=== PATIENT | female | born 1990 | race Two or more races ===

== ENCOUNTER 2016-08-04 12:25 | Emergency (ER) | payer OTHER ==
[2016-08-04 12:30] VITALS: BP 121/79; PULSE 63; TEMP 98.3; BMI 32.5
[2016-08-04] MEDS ORDERED: KETOROLAC TROMETHAMINE 60 MG/2 ML VIAL IM ONE (13:11)
[2016-08-04] MEDS ORDERED: KETOROLAC TROMETHAMINE 60 MG/2 ML VIAL ONE (14:10)
--- NOTE | 2016-08-04 14:22 | PDOC ---
History of Present Illness - General Chief Complaint: Pain, Acute Stated Complaint: LT KNEE PAIN Time Seen by Provider: 08/04/16 12:51 History Source: Patient Exam Limitations: No Limitations - History of Present Illness Initial Comments: 08/04/16 14:16 CC left knee pain and swelling post fall on steps x 2 days ago; difficulty ambulating now Occurred: reports: other ( sunday evening) Severity: reports: moderate Pain Location: reports: lower extremity Method of Injury: Yes: direct blow, fall Past History - Past Medical History Allergies/Adverse Reactions: Allergies Allergy/AdvReac Type Severity Reaction Status Date / Time No Known Allergies Allergy Verified 08/04/16 13:01 Home Medications: Ambulatory Orders NK [No Known Home Medication] 08/04/16 Anemia: No Asthma: No Cancer: No Cardiac Disorders: No CVA: No COPD: No CHF: No Dementia: No Diabetes: No GI Disorders: Yes (ABDOMINAL PAIN) Disorders: No HTN: No Hypercholesterolemia: No Liver Disease: No Seizures: No Thyroid Disease: No - Surgical History Abdominal Surgery: No Appendectomy: No Cardiac Surgery: No Cholecystectomy: No Lung Surgery: No Neurologic Surgery: No Orthopedic Surgery: Yes (LEFT FOOT BUNIONECTOMY) - Immunization History Immunization Up to Date: Yes - Psycho/Social/Smoking Cessation Hx Anxiety: No Suicidal Ideation: No Smoking Status: No Smoking History: Never smoked Have you smoked in the past 12 months: Yes Number of Cigarettes Smoked Daily: 0 If you are a former smoker, when did you quit?: 1 MONTH Information on smoking cessation initiated: No Hx Alcohol Use: No Drug/Substance Use Hx: No Substance Use Type: None, Marijuana Hx Substance Use Treatment: No Review of Systems - Review of Systems Constitutional: No: Symptoms Reported HEENTM: No: Symptoms Reported Respiratory: No: Symptoms reported ABD/GI: No: Symptoms Reported Musculoskeletal: Yes: Joint Pain, Joint Swelling Integumentary: No: Symptoms Reported *Physical Exam - Vital Signs Last Vital Signs Temp Pulse Resp BP Pulse Ox 98.3 F 63 18 121/79 100 08/04/16 12:28 08/04/16 12:28 08/04/16 12:28 08/04/16 12:28 08/04/16 12:28 - Physical Exam General Appearance: Yes: Appropriately Dressed. No: Apparent Distress HEENT: positive: TMs Normal, Pharynx Normal Neck: positive: Supple. negative: Tender, Rigid Respiratory/Chest: positive: Lungs Clear, Normal Breath Sounds. negative: Accessory Muscle Use Musculoskeletal: positive: Other (tender to medial joint space; no laxity; pain increases with flexion > 45; with anterior knee effusion) ED Treatment Course - ADDITIONAL ORDERS Additional order review: Laboratory Results 08/04/16 13:15 Urine HCG, Qual Negative - RADIOLOGY Radiology Studies Ordered: Category Date Time Status KNEE 2 POS-LEFT [RAD] Stat Radiology 08/04/16 13:11 Completed - Medications Given in the ED: ED Medications Discontinued Medications Generic Name Dose Route Start Last Admin Trade Name Freq PRN Reason Stop Dose Admin Ketorolac Tromethamine 60 mg 08/04/16 13:11 08/04/16 14:14 Toradol Injection - IM 08/04/16 13:12 60 mg ONCE ONE Administration Medical Decision Making - Medical Decision Making 08/04/16 14:20 will suggest follow up for reeval. post 4 days rest with ortho; knee immobilizer applied *DC/Admit/Observation/Transfer Diagnosis at time of Disposition: Strain of left knee Qualifiers: Encounter type: initial encounter Qualified Code(s): S86.912A - Strain of unspecified muscle(s) and tendon(s) at lower leg level, left leg, initial encounter - Discharge Dispostion Disposition: HOME Condition at time of disposition: Stable Admit: No - Referrals Referrals: Naomi Wall MD [Primary Care Provider] - Donaldo Dewey MD [Staff Physician] - - Patient Instructions Additional Instructions: PLEASE SEE ORTHOPEDIST IN 4-5 DAYS; REST, USE KNEE BRACE; ADVIL 400MG 3 TIMES DAILY - Post Discharge Activity Work/School Note: Back to Work
== END 2016-08-04 14:27 | disposition home or self-care (01) ==
LOC: JERFT 12:25
PROC: 2W3RX1Z Immobilization of Left Lower Leg using Splint (ICD-10-PCS; principal; 2016-08-04)
PROC: 3E0233Z Introduction of Anti-inflammatory into Muscle, Percutaneous Approach (ICD-10-PCS; 2016-08-04)
DX: S86.912A Strain of unspecified muscle(s) and tendon(s) at lower leg level, left leg, initial encounter (principal); W10.9XXA Fall (on) (from) unspecified stairs and steps, initial encounter; Y93.89 Activity, other specified; Y92.9 Unspecified place or not applicable
CPT/HCPCS: 29515; 73560-TC-LT; 84703; 96372; 99281-25

== ENCOUNTER 2016-10-04 11:53 | Emergency (ER) | payer OTHER ==
[2016-10-04 12:15] VITALS: BP 106/57; PULSE 67; TEMP 98; BMI 29.5
[2016-10-04] MEDS ORDERED: ALBUTEROL SO4 0.083% IH SOL 2.5 MG/3 ML VIAL.NEB. NEB ONE ×2 (13:39→13:42)
--- NOTE | 2016-10-04 13:41 | PDOC ---
History of Present Illness - General Chief Complaint: Cold Symptoms Stated Complaint: BODY PAIN Time Seen by Provider: 10/04/16 13:31 History Source: Patient Exam Limitations: No Limitations - History of Present Illness Initial Comments: 10/04/16 13:39 26 yr female with nasal congestion, body aches started 2 days ago. Pt denies fever , has productive cough. no urinary complaints LMP 10/04/16. no medical history , has seasonal allergies. Severity: reports: mild Past History - Past Medical History Allergies/Adverse Reactions: Allergies Allergy/AdvReac Type Severity Reaction Status Date / Time No Known Allergies Allergy Verified 10/04/16 12:12 Home Medications: Ambulatory Orders Albuterol 0.083% Nebulizer Shavon [Ventolin 0.083% Nebulizer Soln -] 1 neb NEB Q6H #30 vial 10/04/16 Albuterol Sulfate Inhaler - [Ventolin Hfa Inhaler -] 1 - 2 inh PO Q4H #1 inhaler 10/04/16 Azithromycin [Zithromax 250mg Tablets -] 250 mg PO UTDICT #6 tab 10/04/16 Anemia: No Asthma: No Cancer: No Cardiac Disorders: No CVA: No COPD: No CHF: No Dementia: No Diabetes: No GI Disorders: Yes (ABDOMINAL PAIN) Disorders: No HTN: No Hypercholesterolemia: No Liver Disease: No Seizures: No Thyroid Disease: No Other medical history: DENIES. - Surgical History Abdominal Surgery: No Appendectomy: No Cardiac Surgery: No Cholecystectomy: No Lung Surgery: No Neurologic Surgery: No Orthopedic Surgery: Yes (LEFT FOOT BUNIONECTOMY) - Immunization History Immunization Up to Date: Yes - Psycho/Social/Smoking Cessation Hx Anxiety: No Suicidal Ideation: No Smoking Status: No Smoking History: Never smoked Have you smoked in the past 12 months: Yes Number of Cigarettes Smoked Daily: 0 If you are a former smoker, when did you quit?: 1 MONTH Hx Alcohol Use: No Drug/Substance Use Hx: No Substance Use Type: None, Marijuana Hx Substance Use Treatment: No Respiratory Specific PMHX - Complaint Specific PMHX Angina: No Bronchitis: No Pneumonia: No Pulmonary Embolus: No TB (Tuberculosis): No Review of Systems - Review of Systems Able to Perform ROS?: Yes Is the patient limited [place] proficient: No Constitutional: No: Symptoms Reported HEENTM: Yes: Symptoms Reported Respiratory: Yes: Symptoms reported *Physical Exam - Vital Signs Last Vital Signs Temp Pulse Resp BP Pulse Ox 98 F 67 19 106/57 98 10/04/16 12:12 10/04/16 12:12 10/04/16 12:12 10/04/16 12:12 10/04/16 12:12 - Physical Exam General Appearance: Yes: Nourished, Appropriately Dressed HEENT: positive: EOMI, DIAN, TMs Normal, Pharynx Normal, Nasal Congestion Neck: positive: Supple. negative: Rigid, Lymphadenopathy (R), Lymphadenopathy ( L) Respiratory/Chest: positive: Lungs Clear, Normal Breath Sounds, Other (cough ). negative: Chest Tender, Wheezing Cardiovascular: positive: Regular Rhythm, Regular Rate Gastrointestinal/Abdominal: positive: Normal Bowel Sounds, Soft Musculoskeletal: positive: Normal Inspection Extremity: positive: Normal Capillary Refill, Normal Inspection, Normal Range of Motion Integumentary: positive: Normal Color, Dry, Warm Neurologic: positive: Fully Oriented, Alert, Normal Mood/Affect, Normal Response , Motor Strength 5/5 Medical Decision Making - Medical Decision Making 10/04/16 14:45 cc: body aches, nasal congestion no fever , cough with chest pain productive phlegm will give duoneb abd re-evaluate pt feels better after the duoneb will dc home with inhaler, Zpack and albuterol nebulizers (pt has machine at home) *DC/Admit/Observation/Transfer Diagnosis at time of Disposition: Cough, Bronchitis - Discharge Dispostion Disposition: HOME Condition at time of disposition: Improved - Prescriptions Prescriptions: Albuterol 0.083% Nebulizer Shavon [Ventolin 0.083% Nebulizer Soln -] 1 neb NEB Q6H #30 vial Albuterol Sulfate Inhaler - [Ventolin Hfa Inhaler -] 1 - 2 inh PO Q4H #1 inhaler Azithromycin [Zithromax 250mg Tablets -] 250 mg PO UTDICT #6 tab - Referrals Referrals: Naomi Wall MD [Primary Care Provider] - Stefan Lomeli MD [Staff Physician] - - Patient Instructions Additional Instructions: drink at least 3 liters of water a day use the inhaler as directed take the Zpack as directed for bronchitis take a daily antihistamine sold over the counter such as Claritin or Zyrtec follow with ENT if your symptoms do not improve or worsen
== END 2016-10-04 15:14 | disposition home or self-care (01) ==
LOC: JERFT 11:53
PROC: 3E0F7GC Introduction of Other Therapeutic Substance into Respiratory Tract, Via Natural or Artificial Opening (ICD-10-PCS; principal; 2016-10-04)
DX: J40 Bronchitis, not specified as acute or chronic (principal); R05 Cough; Z87.891 Personal history of nicotine dependence
CPT/HCPCS: 94640; 99281-25

== ENCOUNTER 2017-08-10 17:25 | Emergency (ER) | payer OTHER ==
[2017-08-10 17:51] VITALS: BP 141/64; PULSE 73; TEMP 98.3; BMI 36.0
[2017-08-10] MEDS ORDERED: DIPHTH,PERTUSS(ACELL),TET 0.5 ML DISP.SYRIN IM ONE (17:53)
--- NOTE | 2017-08-10 17:53 | PDOC ---
Rapid Medical Evaluation Chief Complaint: Laceration Time Seen by Provider: 08/10/17 17:50 Medical Evaluation: Allergies Allergy/AdvReac Type Severity Reaction Status Date / Time No Known Allergies Allergy Verified 08/10/17 17:47 Vital Signs Temp Pulse Resp BP Pulse Ox 98.3 F 73 16 141/64 100 08/10/17 17:48 08/10/17 17:48 08/10/17 17:48 08/10/17 17:48 08/10/17 17:48 08/10/17 17:52 I have performed a brief in-person evaluation of this patient. The patient presents with a chief complaint of:finger lac to R index Pertinent physical exam findings:superficial lac to distal phalanx of R index I have ordered the following:boostrix The patient will proceed to the ED for further evaluation.
--- NOTE | 2017-08-10 18:21 | PDOC ---
History of Present Illness - General Chief Complaint: Laceration Stated Complaint: LACERATION Time Seen by Provider: 08/10/17 17:50 History Source: Patient Exam Limitations: No Limitations - History of Present Illness Initial Comments: 08/10/17 18:21 This 27-year-old female presents to the emergency room with complaint of a right hand second digit MIP dorsal laceration approximately half an inch and linear. She was cutting something at preparing for dinner and slipped cutting her finger. Bleeding is controlled. There is good distal capillary refill. Positive range of motion. No ALLERGIES No past medical history Past History - Past Medical History Allergies/Adverse Reactions: Allergies Allergy/AdvReac Type Severity Reaction Status Date / Time No Known Allergies Allergy Verified 08/10/17 17:47 Home Medications: Ambulatory Orders NK [No Known Home Medication] 08/10/17 Anemia: No Asthma: Yes Cancer: No Cardiac Disorders: No CVA: No COPD: No CHF: No Dementia: No Diabetes: No GI Disorders: Yes (ABDOMINAL PAIN) Disorders: No HTN: No Hypercholesterolemia: No Liver Disease: No Seizures: No Thyroid Disease: No - Surgical History Abdominal Surgery: No Appendectomy: No Cardiac Surgery: No Cholecystectomy: No Lung Surgery: No Neurologic Surgery: No Orthopedic Surgery: Yes (LEFT FOOT BUNIONECTOMY) - Immunization History Immunization Up to Date: Yes - Suicide/Smoking/Psychosocial Hx Smoking Status: No Smoking History: Never smoked Have you smoked in the past 12 months: Yes Number of Cigarettes Smoked Daily: 0 If you are a former smoker, when did you quit?: 1 MONTH Information on smoking cessation initiated: No Hx Alcohol Use: No Drug/Substance Use Hx: No Substance Use Type: None, Marijuana Hx Substance Use Treatment: No Review of Systems - Review of Systems Able to Perform ROS?: Yes Comments:: 08/10/17 18:22 General statement: Finger laceration Hematology: neg history of bleeding/blood thinners Skin: Neg for lesions, rash, bruising. Positive laceration right hand second digit HEENT: Neg symptoms Respiratory: Neg SOB or difficulty in breathing Cardiac: Neg chest pain GI: Neg pain, n/v : Neg problems on voiding MS: Neg for joint pain/stiffness, no edema Neuro: Neg for LOC, weakness, Endocrine: Neg for excess thirst/hunger, cold/heat intolerance, excess sweating Allergies: Neg for allergies *Physical Exam - Vital Signs Last Vital Signs Temp Pulse Resp BP Pulse Ox 98.3 F 73 16 141/64 100 08/10/17 17:48 08/10/17 17:48 08/10/17 17:48 08/10/17 17:48 08/10/17 17:48 - Physical Exam Comments: 08/10/17 18:23 General Appearance: This well appearing 27-year-old female V/S: hemodynamically stable, afebrile Skin: WNL of pt's skin color, no signs of pallor, mottling, cyanosis, see procedure note for skin pe Head:symmetrical Throat: lips, teeth, gums, tongue, buccal mucos pink and moist Lungs: Chest symmetry equal. Cap refill <3 seconds. Lung sounds clear Cardiac: PMI at R 4MCL space, pos S1 and S2, regular rate. Abdomen: Soft, round, nontender : Not observed Muscularskeletal: Gait steady, ambulated in to ER, no edema +PMS Neuro: AAOx3, cognitively intact, speech clear and appropriate. Procedures - Laceration/Wound Repair Right Dorsal Hand 2nd digit Wound Length: to 2.5 cm Wound Explored: clean Wound's Depth, Shape: linear Irrigated w/ Saline: Yes Betadine Prep: Yes Anesthesia: 1% Lidocaine Amount of Anesthetic (ccs): 3 Wound Repaired With: Sutures Suture Size/Type: 6:0, nylon Number of Sutures: 4 Layer Closure: No Sterile Dressing Applied: Yes Splint Applied: Yes Sling Applied: No ED Treatment Course - Medications Given in the ED: ED Medications Discontinued Medications Generic Name Dose Route Start Last Admin Trade Name Panchito PRN Reason Stop Dose Admin Diphtheria/Tetanus/Acell Pertussis 0.5 ml 08/10/17 17:53 08/10/17 18:02 Boostrix - IM 08/10/17 17:54 0.5 ml .ONCE ONE Administration *DC/Admit/Observation/Transfer Diagnosis at time of Disposition: Laceration - Discharge Dispostion Disposition: HOME Condition at time of disposition: Good Admit: No - Referrals Referrals: Naomi Wall MD [Primary Care Provider] - - Patient Instructions Printed Discharge Instructions: DI for Laceration Repair Additional Instructions: Discharge instructions 1. Please follow up with your primary physician within the next few days and explain that you have been seen here in the Emergency Room. 2. If you experience any worsening of symptoms, such as signs of infection please return to the ER 3. Rest your hand, keep the area clean and dry, apply bacitracin, and a Band-Aid , return in 7 days to have the sutures removed. 4. Drink plenty of water and Tylenol for pain - Post Discharge Activity
== END 2017-08-10 18:49 | disposition home or self-care (01) ==
LOC: JERFT 17:25
PROC: 3E0234Z Introduction of Serum, Toxoid and Vaccine into Muscle, Percutaneous Approach (ICD-10-PCS; principal; 2017-08-10)
PROC: 0HQFXZZ Repair Right Hand Skin, External Approach (ICD-10-PCS; 2017-08-10)
PROC: 2W3KX1Z Immobilization of Left Finger using Splint (ICD-10-PCS; 2017-08-10)
DX: S61.210A Laceration without foreign body of right index finger without damage to nail, initial encounter (principal); W26.0XXA Contact with knife, initial encounter; Y93.G1 Activity, food preparation and clean up; Y92.030 Kitchen in apartment as the place of occurrence of the external cause; Y99.8 Other external cause status
CPT/HCPCS: 90715; 99281-25

== ENCOUNTER 2018-06-27 08:48 | Emergency (ER) | payer OTHER ==
--- NOTE | 2018-06-27 09:04 | PDOC ---
History of Present Illness - General Chief Complaint: Respiratory Stated Complaint: COUGH/HEADACHE Time Seen by Provider: 06/27/18 08:57 History Source: Patient Exam Limitations: No Limitations - History of Present Illness Initial Comments: 06/27/18 11:55 Pt is a 28 y/o F with no PMH ,who presents to the ED with 2 weeks of cough and shortness of breath. Patient states she is tried multiple [id number] medications with no relief of her symptoms. She states when she tries to take a deep breath she has a severe dry cough. Patient also has some associated chest tightness and rib pain. Patient believes this is from her inability to take a deep breath. No family history of cardiac disease. Denies fevers, chills, runny nose, nausea, vomiting and diarrhea. Past History - Travel Traveled outside of the country in the last 30 days: No Close contact w/someone who was outside of country & ill: No - Past Medical History Allergies/Adverse Reactions: Allergies Allergy/AdvReac Type Severity Reaction Status Date / Time No Known Allergies Allergy Verified 06/27/18 08:51 Home Medications: Ambulatory Orders Albuterol 0.083% Nebulizer Shavon [Ventolin 0.083% Nebulizer Soln -] 1 neb NEB Q4H #20 vial 06/27/18 Azithromycin [Zithromax 250mg Tablets -] 250 mg PO UTDICT #6 tab 06/27/18 Guaifenesin AC [Robitussin AC] 10 ml PO Q6H #200 ml MDD 4 06/27/18 Methylprednisolone [Medrol Dose Twin] 4 mg PO ASDIR #21 tablet 06/27/18 Ranitidine HCl [Zantac] 300 mg PO HS 06/27/18 Anemia: No Asthma: Yes Cancer: No Cardiac Disorders: No CVA: No COPD: No CHF: No Dementia: No Diabetes: No GI Disorders: Yes (ABDOMINAL PAIN) Disorders: No HTN: No Hypercholesterolemia: No Liver Disease: No Seizures: No Thyroid Disease: No - Surgical History Abdominal Surgery: No Appendectomy: No Cardiac Surgery: No Cholecystectomy: No Lung Surgery: No Neurologic Surgery: No Orthopedic Surgery: Yes (LEFT FOOT BUNIONECTOMY) - Immunization History Immunization Up to Date: Yes - Suicide/Smoking/Psychosocial Hx Smoking Status: No Smoking History: Current every day smoker Have you smoked in the past 12 months: Yes Number of Cigarettes Smoked Daily: 0 If you are a former smoker, when did you quit?: 1 MONTH Information on smoking cessation initiated: No Hx Alcohol Use: No Drug/Substance Use Hx: No Substance Use Type: None, Marijuana Hx Substance Use Treatment: No Review of Systems - Review of Systems Able to Perform ROS?: Yes Comments:: 06/27/18 09:04 CONSTITUTIONAL: Absent: fever, chills, diaphoresis, generalized weakness, malaise, loss of appetite HEENT: Absent: rhinorrhea, nasal congestion, throat pain, throat swelling, difficulty swallowing, mouth swelling, ear pain, eye pain, visual Changes CARDIOVASCULAR: Absent: chest pain, loss of consciousness, palpitations, irregular heart rate, peripheral edema RESPIRATORY: Present: cough, difficulty taking a deep breath Absent: shortness of breath, dyspnea with exertion, orthopnea, wheezing, stridor, hemoptysis GASTROINTESTINAL: Absent: abdominal pain, abdominal distension, nausea, vomiting, diarrhea, constipation, melena, hematochezia GENITOURINARY: Absent: dysuria, frequency, urgency, hesitancy, hematuria, flank pain, genital pain MUSCULOSKELETAL: Absent: myalgia, arthralgia, joint swelling SKIN: Absent: rash, itching, pallor HEMATOLOGIC/IMMUNOLOGIC: Absent: easy bleeding, easy bruising, lymphadenopathy, frequent infections ENDOCRINE: Absent: unexplained weight gain, unexplained weight loss, heat intolerance, cold intolerance NEUROLOGIC: Absent: headache, focal weakness or paresthesias, dizziness, unsteady gait, seizure, mental status changes, bladder or bowel incontinence PSYCHIATRIC: Absent: anxiety, depression, suicidal or homicidal ideation, hallucinations. Is the patient limited [place] proficient: No *Physical Exam - Vital Signs Last Vital Signs Temp Pulse Resp BP Pulse Ox 98 F 83 18 110/64 98 06/27/18 08:52 06/27/18 08:52 06/27/18 08:52 06/27/18 08:52 06/27/18 08:52 - Physical Exam Comments: 06/27/18 09:04 GENERAL: Well developed, well nourished. Awake and alert. No acute distress. HEENT: Normocephalic, atraumatic. PERRLA, EOMI. No conjunctival pallor. Sclera are non- icteric. Moist mucous membranes. Oropharynx is clear. NECK: Supple. Full ROM. No JVD. Carotid pulses 2+ and symmetric, without bruits. No thyromegaly. No lymphadenopathy. CARDIOVASCULAR: Regular rate and rhythm. No murmurs, rubs, or gallops. Distal pulses are 2+ and symmetric. PULMONARY: No evidence of respiratory distress. Lungs clear to auscultation bilaterally. No wheezing, rales or rhonchi. ABDOMINAL: Soft. Non-tender. Non-distended. No rebound or guarding. No organomegaly. Normoactive bowel sounds. MUSCULOSKELETAL Normal range of motion at all joints. No bony deformities or tenderness. No CVA tenderness. EXTREMITIES: No cyanosis. No clubbing. No edema. No calf tenderness. SKIN: Warm and dry. Normal capillary refill. No rashes. No jaundice. NEUROLOGICAL: Alert, awake, appropriate. Cranial nerves 2-12 intact. No deficits to light touch and temperature in face, upper extremities and lower extremities. No motor deficits in the in face, upper extremities and lower extremities. Normoreflexic in the upper and lower extremities. Normal speech. Toes are down- going bilaterally. Gait is normal without ataxia. PSYCHIATRIC: Cooperative. Good eye contact. Appropriate mood and affect. Moderate Sedation - Procedure Monitoring Vital Signs: Procedure Monitoring Vital Signs Temperature 98 F 06/27/18 08:52 Pulse Rate 83 06/27/18 08:52 Respiratory Rate 18 06/27/18 08:52 Blood Pressure 110/64 06/27/18 08:52 O2 Sat by Pulse Oximetry (%) 98 06/27/18 08:52 Medical Decision Making - Medical Decision Making 06/27/18 11:58 Patient is a 28-year-old female who comes in for 2 weeks of cough and shortness of breath. On exam lungs are clear to the bases however patient sounds tight. Chest x-ray is negative for acute pulmonary disease Patient given 4 DuoNeb's, steroids, Robitussin with codeine in the ER with improvement of symptoms. On repeat exam patient able to take a deep breath without coughing. Patient feels better and would like to go home at this time. A suspect patient has acute bronchitis. We'll treat with a Z-Twin, steroids and nebulizers at home. Discharge home. I discussed the physical exam findings, ancillary test results and final diagnoses with the patient. I answered all of the patient's questions. The patient was satisfied with the care received and felt comfortable with the discharge plan and treatment plan. The Patient agrees to follow up with the primary care physician/specialist within 24-72 hours. Return precautions were given. *DC/Admit/Observation/Transfer Diagnosis at time of Disposition: Bronchitis - Discharge Dispostion Disposition: HOME Condition at time of disposition: Stable Decision to Admit order: No - Prescriptions Prescriptions: Albuterol 0.083% Nebulizer Shavon [Ventolin 0.083% Nebulizer Soln -] 1 neb NEB Q4H #20 vial Azithromycin [Zithromax 250mg Tablets -] 250 mg PO UTDICT #6 tab Guaifenesin AC [Robitussin AC] 10 ml PO Q6H #200 ml MDD 4 Methylprednisolone [Medrol Dose Twin] 4 mg PO ASDIR #21 tablet - Referrals Referrals: Naomi Wall MD [Primary Care Provider] - - Patient Instructions Printed Discharge Instructions: DI for Acute Bronchitis Additional Instructions: You have bronchitis Please use the albuterol inhaler every 4 hours You may take the Robitussin with codeine every 6 hours as needed for cough. Do not drink or drive after taking this medication as it can make you sleepy Take both the medrol dose pack and z-pack as prescribed. Follow up with your primary care doctor this week Return to the ED for shortness of breath, worsening cough, fever, or if you have any changes in your symptoms - Post Discharge Activity Forms/Work/School Notes: Back to Work
[2018-06-27 09:23] VITALS: BP 110/64; PULSE 83; TEMP 98; BMI 34.1
[2018-06-27] MEDS ORDERED: DEXAMETHASONE LIQUID 0.5 MG/5 ML 240 ML BULK BOTTLE PO ONE (09:41)
[2018-06-27] MEDS ORDERED: DEXAMETHASONE SOD PHOSPHATE 10 MG/1 ML VIAL ONE (09:53)
[2018-06-27] MEDS ORDERED: ALBUTEROL SO4 2.5/IPRATROPIUM 0.5 INH SOL 3 ML VIAL.NEB. NEB ONE ×2 (09:53→10:59)
[2018-06-27] MEDS ORDERED: guaiFENesin/CODEINE 10 ML UNIT-DOSE CUPS PO ONE (11:10)
[2018-06-27] MEDS: ALBUTEROL SO4 2.5/IPRATROPIUM 0.5 INH SOL 3 ML VIAL.NEB. NEB SCH (11:22)
[2018-06-27] MEDS ORDERED: guaiFENesin/CODEINE 5 ML UNIT-DOSE CUPS PO ONE (11:25)
== END 2018-06-27 11:58 | disposition home or self-care (01) ==
LOC: JERFT 08:48 → JER 08:48 → JERFT 11:58
PROC: 3E0F7GC Introduction of Other Therapeutic Substance into Respiratory Tract, Via Natural or Artificial Opening (ICD-10-PCS; principal; 2018-06-27)
DX: J40 Bronchitis, not specified as acute or chronic (principal)
CPT/HCPCS: 71046-TC-FY; 84703; 99281-25

== ENCOUNTER 2020-11-05 18:21 | Emergency (ER) | payer OTHER ==
[2020-11-05 18:37] VITALS: BP 111/79; PULSE 73; TEMP 98.1; BMI 39.4
[2020-11-05] MEDS ORDERED: IBUPROFEN 600 MG TABLET (FP) PO ONE (20:36)
== END 2020-11-05 21:03 | disposition home or self-care (01) ==
LOC: JERFT 18:21
DX: M25.561 Pain in right knee (principal)
CPT/HCPCS: 70450-TC; 73562-TC-RT-FY; 99284-25

== ENCOUNTER 2021-09-20 19:23 | Emergency (ER) | payer OTHER ==
[2021-09-20 19:39] VITALS: BMI 36.8
[2021-09-20] MEDS ORDERED: ONDANSETRON 4 MG/2 ML VIAL IVPUSH ONE (20:11)
[2021-09-20] MEDS ORDERED: SODIUM CHLORIDE 1,000 ML IV SCH (20:15)
[2021-09-20] MEDS ORDERED: ONDANSETRON 4 MG/2 ML VIAL ONE (20:28)
[2021-09-20] MEDS ORDERED: ACETAMINOPHEN 1000 MG/100 ML BAG IVPB ONE (20:39)
[2021-09-20] MEDS ORDERED: ACETAMINOPHEN INJECTION 100 ML IVPB ONE (21:03)
[2021-09-20 21:45] LABS: BASO % 0.4 % (0-2.0); EOS % 0.3 % (0-4.5); HEMATOCRIT 43.9 % (32.4-45.2); HEMOGLOBIN 15.1 GM/dL (10.7-15.3); LYMPH % 10.6 % (8-40); MCH 29.1 pg (25.7-33.7); MCHC 34.4 g/dl (32.0-36.0); MEAN CELL VOLUME 84.7 fl (80-96); MEAN PLT VOLUME 8.7 fl (7.5-11.1); MONO % 6.6 % (3.8-10.2); NEUT % 82.1 % (42.8-82.8); PLATELET COUNT 223 10^3/uL (134-434); RBC 5.18 M/mm3 (3.60-5.2); RDW 12.8 % (11.6-15.6); WHITE BLOOD COUNT 7.3 K/mm3 (4.0-10.0)
[2021-09-20 21:59] LABS: ALBUMIN 3.4 g/dl (3.4-5.0); CALCIUM 8.4 mg/dL (8.5-10.1)
[2021-09-20 22:00] LABS: BLOOD UREA NITROGEN 21.2 mg/dL (7-18)
[2021-09-20 22:02] LABS: CREATININE 0.7 mg/dL (0.55-1.3)
[2021-09-20 22:04] LABS: BILIRUBIN,TOTAL 1.6 mg/dL (0.2-1); TOT PROT 6.7 g/dl (6.4-8.2)
[2021-09-20] MEDS ORDERED: METOCLOPRAMIDE HCL INJECTION 10 MG/2 ML VIAL IVPUSH ONE (22:54)
[2021-09-20] MEDS ORDERED: METOCLOPRAMIDE HCL INJECTION 10 MG/2 ML VIAL ONE (23:04)
[2021-09-21 00:23] LABS: PH,URINE 7.5 (5.0-8.0); URINE APPEARANCE CLEAR; URINE BILIRUBIN NEGATIVE (NEGATIVE); URINE COLOR DK YELLOW; URINE GLUCOSE (UA) NEGATIVE (NEGATIVE); URINE KETONE 2+ (NEGATIVE); URINE LEUK ESTERASE NEGATIVE (NEGATIVE); URINE NITRITE NEGATIVE (NEGATIVE); URINE PROTEIN TRACE (NEGATIVE)
[2021-09-21 02:03] VITALS: BP 101/69; PULSE 93; TEMP 98.6
== END 2021-09-21 02:34 | disposition home or self-care (01) ==
LOC: JER 19:23
PROC: 3E0333Z Introduction of Anti-inflammatory into Peripheral Vein, Percutaneous Approach (ICD-10-PCS; principal; 2021-09-20)
PROC: 3E033GC Introduction of Other Therapeutic Substance into Peripheral Vein, Percutaneous Approach (ICD-10-PCS; 2021-09-20)
PROC: 3E033GC Introduction of Other Therapeutic Substance into Peripheral Vein, Percutaneous Approach (ICD-10-PCS; 2021-09-20)
PROC: 3E033GC Introduction of Other Therapeutic Substance into Peripheral Vein, Percutaneous Approach (ICD-10-PCS; 2021-09-20)
DX: R55 Syncope and collapse (principal); R11.2 Nausea with vomiting, unspecified; R19.7 Diarrhea, unspecified
CPT/HCPCS: 36415; 76705-TC; 80053; 81003; 83690; 84703; 85025; 93005; 93010; 99284-25

== ENCOUNTER 2022-05-05 13:08 | Day surgery (SDC) | payer OTHER ==
[2022-05-02 09:53] VITALS: BMI 43.7
[2022-05-05] MEDS ORDERED: BUPIVACAINE HCL/PF 2.5 MG/ML - 30 ML VIAL IJ ONE (14:05)
[2022-05-05] MEDS ORDERED: MIDAZOLAM HCL 2 MG/2 ML SINGLE DOSE VIAL ONE ×3 (14:13→14:53)
[2022-05-05] MEDS ORDERED: ceFAZolin SODIUM 1 GM VIAL ONE (14:49)
[2022-05-05] MEDS ORDERED: PROPOFOL 20 ML ONE (14:58)
[2022-05-05] MEDS ORDERED: ONDANSETRON 4 MG/2 ML VIAL ONE (14:58)
[2022-05-05] MEDS ORDERED: oxyCODONE HCL 5 MG TABLET PO PRN (15:18)
[2022-05-05] MEDS ORDERED: LACTATED RINGERS SOLUTION 1,000 ML IV SCH (15:30)
[2022-05-05] MEDS ORDERED: oxyCODONE HCL 5 MG TABLET ONE (16:21)
[2022-05-05 17:01] VITALS: RESP 20
[2022-05-05] MEDS ORDERED: PROMETHAZINE HCL 25 MG/1 ML VIAL IVPUSH ONE (17:25)
[2022-05-05 22:12] VITALS: BP 120/66; PULSE 69; TEMP 98.2
== END 2022-05-05 21:50 | disposition home or self-care (01) ==
LOC: FASU 13:08
PROVIDERS: ATTEND Orthopaedic Surgery
PROC: 0SBD4ZZ Excision of Left Knee Joint, Percutaneous Endoscopic Approach (ICD-10-PCS; principal; 2022-05-05 14:57)
PROC: 0SBD4ZZ Excision of Left Knee Joint, Percutaneous Endoscopic Approach (ICD-10-PCS; 2022-05-05 14:57)
DX: S83.242A Other tear of medial meniscus, current injury, left knee, initial encounter (principal); S83.282A Other tear of lateral meniscus, current injury, left knee, initial encounter; S83.8X2A Sprain of other specified parts of left knee, initial encounter; M65.862 Other synovitis and tenosynovitis, left lower leg; X58.XXXA Exposure to other specified factors, initial encounter; Y93.9 Activity, unspecified; Y92.9 Unspecified place or not applicable
CPT/HCPCS: 81025; 94760